=== PATIENT | male | born 1985 ===

== ENCOUNTER 2021-05-20 14:58 | Emergency (ER) | payer BC, SELFPAY ==
[2021-05-20 15:03] VITALS: BP 141/87; PULSE 99; RESP 17; TEMP 36.2; O2SAT 100
--- NOTE | 2021-05-20 15:26 | ECG_ITS ---
Measurements Intervals [place] Rate: 76 P: 45 NV: 134 QRS: 19 QRSD: 89 T: 1 QT: 348 QTc: 393 Interpretive Statements SINUS RHYTHM BORDERLINE T WAVE ABNORMALITY- INF/LAT LEADS BASELINE ARTIFACT- I, II, III, AVR, AVL, AVF BORDERLINE ECG Electronically Signed On 05-20-2021 16:29:17 CDT by Wiliam Hensley D.O.
--- NOTE | 2021-05-20 15:35 | ED.GENADULT ---
HPI - General Adult General Chief complaint: Recheck/Abnormal Lab/Rx Stated complaint: blood flow issues Time Seen by Provider: 05/20/21 15:08 Source: patient and RN notes reviewed Mode of arrival: ambulatory Limitations: no limitations History of Present Illness HPI narrative: This is a 35 year old male who presents for evaluation of bilateral arm issue. Patient reports early this week he felt like is right arm was tightening. He reports this lasted for 5 minutes and it resolved. He denies having abnormal arm movements. He reports having intermittent episodes. He states his episodes feels better if he straightens his arms. He denies cyanosis. He reports his right hand seemed to be more red at some point but it looks normal now. He is unable to fully explain, but he states he just feels off. He reports 2 weeks ago he woke up with neck pain but that has resolved. He denies unsteady gait or focal weakness. He denies chest pain, sob, nausea or vomiting. His father notes patient's hands are shaky. Related Data Home Medications Medication Instructions Recorded Confirmed escitalopram oxalate mg 05/20/21 05/20/21 Allergies Allergy/AdvReac Type Severity Reaction Status Date / Time No Known Allergies Allergy Mild Unverified 05/20/21 15:13 Review of Systems Review of Systems: All systems reviewed & are unremarkable except as noted in HPI and below PMFSH Past Medical History Medical History (Updated 05/21/21 @ 00:00 by Soumya Rodriguez) Anxiety Surgical History Surgical History (Updated 05/20/21 @ 15:42 by Dayanara Mercado MD) No pertinent past surgical history Social History Social History (Updated 05/20/21 @ 15:42 by Dayanara Mercado MD) Smoking status: Never smoker Exam Const: General: no acute distress and alert Orientation/consciousness: patient oriented x3 HENMT: Head: normocephalic and atraumatic Face and sinus: normal facial exam, sinuses nontender and face symmetric Throat: posterior oropharynx normal, tonsils normal and uvula midline Eyes: Pupils: Equal, round and reactive pupils present EOM: EOMs intact bilaterally Resp: Effort & Inspection: normal respiratory effort and no retractions Auscultation: clear to auscultation bilaterally Cardio: Rate: regular rate Rhythm: regular rhythm Heart sounds: no murmurs GI: GI Palp: Yes Soft to palpation, No Tenderness to palpation present (GI) and No Guarding due to palpation present (GI) Auscultation: normal bowel sounds Neuro: General: patient oriented x3, moves all extremities and CN's II-XI intact bilaterally Psych: Affect: Anxious affect present Course Reevaluation(s) Reevaluation #1: Patient has not complaints currently. He has not focal deficits and bilateral radial pulses, no sign of ischemia. Labs are unremarkable. He will follow up with PCP regarding his symptoms. Date: 05/20/21 Time: 17:28 Vital Signs Vital signs: Vital Signs Temperature 97.2 F L 05/20/21 15:03 Pulse Rate 99 05/20/21 15:03 Respiratory Rate 17 05/20/21 15:03 Blood Pressure 141/87 H 05/20/21 15:03 Pulse Oximetry 100 05/20/21 15:03 Temperature 97.2 F L 05/20/21 15:03 Pulse Rate 85 05/20/21 16:40 Respiratory Rate 17 05/20/21 15:03 Blood Pressure 104/76 05/20/21 16:40 Pulse Oximetry 100 05/20/21 15:03 Medical Decision Making Vital Signs Vital Signs: Vital Signs Temperature 97.2 F L 05/20/21 15:03 Pulse Rate 99 05/20/21 15:03 Respiratory Rate 17 05/20/21 15:03 Blood Pressure 141/87 H 05/20/21 15:03 Pulse Oximetry 100 05/20/21 15:03 Temperature 97.2 F L 05/20/21 15:03 Pulse Rate 85 05/20/21 16:40 Respiratory Rate 17 05/20/21 15:03 Blood Pressure 104/76 05/20/21 16:40 Pulse Oximetry 100 05/20/21 15:03 Lab Data Lab results reviewed: Yes I reviewed the patient's lab results. Result diagrams: 05/20/21 16:05 05/20/21 16:04 Labs: Lab Resu
[2021-05-20] MEDS: diazePAM (*CRX) 5 MG TABLET PO (15:47)
[2021-05-20 16:12] LABS: Basophils Percent Auto 0.5 % (0.2-1.2); Eosinophils Absolute Auto 0.2 K/mm3 (0-0.3); Eosinophils Percent Auto 2.4 % (0-4.4); Hematocrit 52.3 % (42.0-52.0); Hemoglobin 17.2 g/dL (14.0-18.0); Immature Granulocyte Absolute 0.02 K/mm3 (0.00-0.031); Immature Granulocyte Percent A 0.3 % (0-0.5); Lymphocytes Absolute Auto 1.34 K/mm3 (0.9-3.2); Lymphocytes Percent Auto 21.4 % (18.3-44.2); Mean Corpuscular HGB Conc 32.9 g/dl (32-36); Mean Corpuscular Hemoglobin 29.5 pg (26-34); Mean Corpuscular Volume 89.7 fl (80-100); Mean Platelet Volume 9.8 fl (7.4-10.4); Monocytes Absolute Auto 0.6 K/mm3 (0.1-0.6); Monocytes Percent Auto 9.1 % (2.6-8.5); Neutrophils Absolute Auto 4.2 K/mm3 (1.3-6.7); Neutrophils Percent Auto 66.3 % (45.5-73.1); Platelet Count Result 174 k/mm3 (150-375); Red Blood Count 5.83 M/mm3 (4.6-6.20); Red Cell Distribution Width 12.4 % (11.5-14.5); White Blood Count 6.3 K/mm3 (4.5-10.0)
[2021-05-20 16:25] LABS: INR 0.9; Prothrombin Time 12.2 Seconds (11.1-14.7)
[2021-05-20 16:28] LABS: Alanine Aminotransferase 50 U/L (4-50); Albumin Level 4.8 g/dL (3.5-5.1); Alkaline Phosphatase 85 U/L (38-126); Anion Gap 7 mmol/L (8-16); Aspartate Amino Transferase 38 U/L (17-59); Bilirubin,Total 0.6 mg/dL (0.2-1.3); Blood Urea Nitrogen 18 mg/dL (9-20); CRP < 0.5 mg/dL (<1.0); Calcium 9.7 mg/dL (8.4-10.2); Carbon Dioxide 32 mmol/L (22-30); Chloride 101 mmol/L (98-107); Estimated CRCL calculation 85 ml/min; Estimated Glomerular Filt Rate > 60; Glucose 80 mg/dL (65-110); Magnesium 1.9 mg/dL (1.6-2.3); Potassium 4.2 mmol/L (3.4-5.0); Sodium 140 mmol/L (137-145)
[2021-05-20 16:37] VITALS: BP 109/76; PULSE 68
[2021-05-20 16:38] LABS: Add Urine Microscopic? YES; Appearance Urine Cloudy (Clear); Bilirubin Urine Negative (Negative); Blood Urine Negative (Negative); Color Urine Yellow (Yellow); Glucose Urine UA Negative (Negative); Ketones Urine Negative (Negative); Leukocyte Esterase Ur Negative LEU/UL (Negative); Nitrate Urine Negative (Negative); Protein Urine Negative (Negative); RBC Urine 0-2 /hpf (0-2); Specific Grav Ur 1.019 (1.001-1.035); WBC Urine 0-3 /hpf
[2021-05-20 16:39] VITALS: BP 110/78; PULSE 82
[2021-05-20 16:40] VITALS: BP 104/76; PULSE 85
== END 2021-05-20 17:44 | disposition home or self-care (01) ==
PROVIDERS: Emergency Provider General Practice; PCP Emergency Medicine
DX: R20.2 Paresthesia of skin (principal); F41.9 Anxiety disorder, unspecified
CPT/HCPCS: 36415; 80053; 81001; 83735; 84443; 85025; 85610; 85730; 86140; 93005; 99283; A9270